=== PATIENT | female | born 1965 | race Caucasian/White ===

== ENCOUNTER 2021-06-14 12:00 | Emergency (ER) | payer OTHER ==
[~2021-06-14] VITALS: Ht 167.6 cm; Wt 107.0 kg
[2021-06-14] MEDS ORDERED: METFORMIN (12:35)
[2021-06-14] MEDS ORDERED: CARVEDILOL (12:35)
[2021-06-14] MEDS ORDERED: ASPI81TA31 PO (12:35)
[2021-06-14] MEDS ORDERED: HYDRALAZINE (12:35)
[2021-06-14] MEDS ORDERED: LOSARTAN (12:35)
[2021-06-14] MEDS ORDERED: KETOROLAC TROMETHAMINE 30 MG INJ IM ONE (13:15)
[2021-06-14] MEDS ORDERED: MORPHINE SULFATE 4 MG/1 ML DISP.SYRIN IM ONE (13:15)
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
[2021-06-14] MEDS ORDERED: KETOROLAC TROMETHAMINE 30 MG INJ ONE (13:37)
[2021-06-14] MEDS ORDERED: MORPHINE SULFATE 4 MG/1 ML DISP.SYRIN ONE (13:37)
--- NOTE | 2021-06-14 13:44 | NUR ---
PATIENT REFUSED TETENUS VACCINE.. ALL RISKS INCLUDING RISK OF EXPLAINED TO PATIENT, SHE STATES SHE UNDERSTANDS
[2021-06-14] MEDS ORDERED: LIDOCAINE HCL 1% 20 ML VIAL ONE (14:45)
[2021-06-14] MEDS ORDERED: TDAP DIPH,PERTUSS,TET VAC/PF 0.5 ML DISP.SYRIN IM ONE (14:45)
[2021-06-14] MEDS ORDERED: LIDOCAINE 1%-EPI 1:100,000 20 ML VIAL IJ ONE (14:45)
[2021-06-14] MEDS ORDERED: LIDOCAINE 1%-EPI 1:100,000 20 ML VIAL ONE (15:13)
--- NOTE | 2021-06-14 15:30 | NUR ---
DR MATTHEW AT BEDSIDE FOR WOUND CARE ON SCALP... I CLEANSED AREA WELL AND DR MATTHEW PLACED LIDOCAINE AND SYED. PATIENT TOLERATED IT WELL. PATIENT AND DAUGHTER STATE THEY UNDERSTAND THAY SYED NEED TO BE REMOVED BY HEALTHCARE PROFESSIONAL IN 5 DAYS
[2021-06-14] MEDS ORDERED: IBUP-1955 PO (16:01)
--- NOTE | 2021-06-14 16:11 | NUR ---
DC, RX AND FOLLOW UP INSTRUCTIONS GIVEN AND EXPLAINED TO PATIENT AND DAUGHTER WHO STATES SHE UNDERSTANDS ALL INSTRUCTIONS
== END 2021-06-14 16:13 | disposition home or self-care (01) ==
LOC: ER 12:00
DX: S01.01XA Laceration without foreign body of scalp, initial encounter (principal); S80.02XA Contusion of left knee, initial encounter; S50.12XA Contusion of left forearm, initial encounter; V43.52XA Car driver injured in collision with other type car in traffic accident, initial encounter; Y92.414 Local residential or business street as the place of occurrence of the external cause
CPT/HCPCS: 70160; 70450; 72110; 72220; A4217; A4663; J1885; J2270; J3490; L8699

== ENCOUNTER 2021-06-20 13:07 | Emergency (ER) | payer OTHER ==
[~2021-06-20] VITALS: Ht 167.6 cm; Wt 105.2 kg
[~2021-06-20 13:07] MED LIST: ASPI81TA31 PO; CARVEDILOL; HYDRALAZINE; IBUP-1955 PO; LOSARTAN; METFORMIN
--- NOTE | 2021-06-20 13:28 | NUR ---
Patient discharged to home in stable condition. Written and verbal after care instructions given. Patient verbalizes understanding of instructions. Stressed follow up or return to ER for worsening s/s.
== END 2021-06-20 13:32 | disposition home or self-care (01) ==
LOC: ER 13:07
DX: S01.01XD Laceration without foreign body of scalp, subsequent encounter (principal); X58.XXXD Exposure to other specified factors, subsequent encounter; E11.9 Type 2 diabetes mellitus without complications
CPT/HCPCS: A4663

== ENCOUNTER 2021-06-24 08:43 | Emergency (ER) | payer OTHER ==
[~2021-06-24] VITALS: Ht 167.6 cm; Wt 107.5 kg
--- NOTE | 2021-06-24 09:05 | NUR ---
PT IS IN ROOM #2A. DR MATTHEW EVALUATED THE PT.
--- NOTE | 2021-06-24 09:15 | NUR ---
PT WAS D/C'd TO HOME. D/C INSTRUCTIONS GIVEN TO THE PT BY DR MATTHEW.
[2021-06-24 09:16] VITALS: BP 141/75
== END 2021-06-24 09:17 | disposition home or self-care (01) ==
LOC: ER 08:44
DX: S01.01XD Laceration without foreign body of scalp, subsequent encounter (principal); V49.60XD Unspecified car occupant injured in collision with unspecified motor vehicles in traffic accident, subsequent encounter; E11.9 Type 2 diabetes mellitus without complications; Z79.84 Long term (current) use of oral hypoglycemic drugs; Z79.82 Long term (current) use of aspirin
CPT/HCPCS: A4663